=== PATIENT | female | born 1960 | race Caucasian/White ===

== ENCOUNTER 2018-10-07 19:58 | Observation (INO) ==
[2018-10-07] MEDS ORDERED: Isovue-370 500 ML BOTTLE IVP ONE (20:10)
--- NOTE | 2018-10-07 20:21 | Emergency Department Note ---
Disposition Clinical Impression: Hyponatremia, Tremor Acute pulmonary embolism Qualifiers: Pulmonary embolism type: other Acute cor pulmonale presence: without acute cor pulmonale Qualified Code(s): I26.99 - Other pulmonary embolism without acute cor pulmonale Disposition: Admitted As Inpatient Condition: Fair General Adult HPI - General Chief complaint: ED General Medical Stated complaint: cp/tremors Time Seen by Provider: 10/07/18 20:08 Source: patient, EMS Limitations: no limitations Nursing Notes Reviewed: Yes Vital Signs Reviewed: Yes - History of Present Illness HPI Narrative: 58-year-old female with history of COPD who presents the emergency department with complaints of tremors and chest pain. Apparently the patient has had chest pain, midsternally and radiating into her her right lateral ribs which she describes as pleuritic and sharp for the past 3 days. She feels increasingly more short of breath but did not take her inhalers today. She does have a history of pulmonary embolism and DVT but is not on anticoagulation at this time. Otherwise she has noted tremors of bilateral upper extremities for approximately 20 minutes prior to arrival. She also notes numbness in her right foot but does have diabetic neuropathy and she has a boot on the left foot due to a fracture approximately one week ago. She has never had anything like this before. She denies any fever, chills, nausea, vomiting, abdominal pain. She is on lacosamide for seizures and is no longer on anticoagulation from history of DVT. She has previously had similar tremor which has been evaluated by a neurologist in the past and was found to be benign. Pain Scale: 8 - Related Data Home Medications Medication Instructions Recorded Confirmed ALPRAZolam [Xanax 1 MG Tablet] 1 mg PO TID 10/08/18 10/08/18 Atorvastatin [Lipitor] 40 mg PO HS 10/08/18 10/08/18 Chlorzoxazone 500 mg PO TID PRN 10/08/18 10/08/18 Diclofenac Sodium 25 mg PO BID 10/08/18 10/08/18 Duloxetine HCl [Cymbalta] 60 mg PO DAILY 10/08/18 10/08/18 Folic Acid 1 mg PO TID 10/08/18 10/08/18 Gabapentin [Neurontin] 800 mg PO QID PRN 10/08/18 10/08/18 Lacosamide [Vimpat] 100 mg PO BID 10/08/18 10/08/18 Lisinopril [Zestril] 5 mg PO DAILY 10/08/18 10/08/18 Methotrexate [Otrexup] 17.5 mg PO SA 10/08/18 10/08/18 OxyCODONE/APAP 10/325 [Percocet 1 tab PO DAILY PRN 10/08/18 10/08/18 10/325 MG] Oxymorphone HCl [Oxymorphone HCl 10 mg PO Q12H 10/08/18 10/08/18 ER] Ranitidine HCl [Zantac] 150 mg PO BID 10/08/18 10/08/18 Spironolactone 25 mg PO DAILY 10/08/18 10/08/18 metFORMIN [Glucophage] 500 mg PO BID 10/08/18 10/08/18 predniSONE [PredniSONE] 5 mg PO DAILY 10/08/18 10/08/18 traZODone [TraZODone] 25 mg PO HS 10/08/18 10/08/18 Allergies Allergy/AdvReac Type Severity Reaction Status Date / Time Penicillins [PCN] Allergy Hives Verified 02/24/15 16:11 Review of Systems: ROS per history of present illness, all other systems reviewed and negative or normal. All systems ED: reviewed and negative except as stated. Review of Systems: As Per HPI Past Medical History - Past Medical History Medical history: Reports: arthritis, COPD, coronary artery disease, diabetes, fibromyalgia, hyperlipidemia, hypertension, pulmonary embolus, other Surgical history: Reports: appendectomy, hysterectomy, other Psychiatric history: Reports: anxiety, depression - Social History Smoking Status: Current every day smoker Smokeless Tobacco Status: No Alcohol use: Reports: rarely Drug use: Reports: none Physical Exam General: Conversant. No apparent distress. Follow commands. Appears stated age. Neck: No JVD. Trachea midline. Neck supple. Eyes: PERRL. No scleral icterus. HENT: Normocephalic and atraumatic. Moist mucus membranes. Cardiovascular: Regular rate and rhythm. Normal S1 and S2. No murmurs appreciated. Normal capillary refill. Extremities well perfused with 2+ distal pulses bilaterally. No edema. Pulmonary: Wheezing diffusely with coarse breath sounds. Not in respiratory distress. Abdomen: Soft, nondistended, and tontender. No bruits or masses. No guarding. Neuro: Alert and oriented x3. No slurred speech. No focal deficits noted. Intermittent tremor of bilateral upper extremities which ceases with intention. Strength 5 out of 5 in bilateral upper and lower extremities. EOMI. Skin: No rashes noted on visualized skin. Musculoskeletal: No bony abnormalities visualized. Moves all extremities. Psych: Normal mood. Pleasant. Makes appropriate eye contact. - General Limitations: no limitations General appearance: alert Course - Reevaluation(s) Reevaluation #1: Per radiologist, Patient has right segmental and subsegmental pulmonary emboli on the right. Time: 21:49 Vital Signs Temperature 97.6 F 10/07/18 19:59 Pulse Rate 114 10/07/18 19:59 Respiratory Rate 24 10/07/18 19:59 Blood Pressure 120/98 10/07/18 19:59 O2 Sat by Pulse Oximetry 97 10/07/18 19:59 Temperature 97.6 F 10/07/18 19:59 Pulse Rate 109 10/07/18 21:04 Respiratory Rate 18 10/07/18 22:57 Blood Pressure 119/81 10/07/18 22:57 O2 Sat by Pulse Oximetry 93 10/07/18 21:04 Oxygen Delivery Oxygen Delivery Room Air Medical Decision Making - MDM Narrative Medical decision making narrative: 58 old female who presents the emergency department with complains of pleuritic chest pain as well as tremors. Her chest pain has been present for approximately 3 days and her tremors proximally 20 minutes. She does admit to history of DVT and is not on anticoagulation at this point. She does have a history of tremors which were evaluated by a neurologist. Here in the emergency department initial concern for new intracranial pathology as well as pulmonary embolism. CT head shows no evidence of acute bleed. CBC shows no significant leukocytosis, anemia, BMP shows hyponatremia 130, no prior to determine chronicity of this. Otherwise TSH is normal, BNP 39, troponin undetectable 1. EKG shows right bundle branch block, no prior for comparison. Chest CTA does show right subsegmental and segmental pulmonary emboli. Indeterminate whether her left foot fracture and possible decreased ambulation precipitated this pulmonary embolism but she does have prior history of DVT as well. Intention tremor did resolve with one time dose of ativan and given her previous negative workup and negative neurologic deficits do believe this is likely stress induced. Given the patient's symptoms and need for anticoagulation will admit the patient. Placed the patient on heparin drip. Discussed case with on-call hospitalist Dr. Alegre who agrees with plan for admission and accepts the patient to the inpatient service. Patient agrees with and understands course of treatment plan including plan for admission. All questions answered. - Medical Records Medical records reviewed: Yes I reviewed the patient's medical records. - Lab Data Lab results reviewed: Yes I reviewed the patient's lab results. Result diagrams: 10/08/18 08:26 10/08/18 08:26 Lab Results 10/07/18 10/07/18 10/07/18 Range/Units 20:32 20:32 20:32 WBC 5.9 (4.3-11.1) K/mcL RBC 4.25 (3.82-4.97) M/mcL Hgb 13.4 (11.5-15.4) g/dL Hct 40.2 (35.3-44.9) % MCV 94.6 (83.0-100.0) fL MCH 31.5 (28.0-33.3) pg MCHC 33.3 (31.6-35.5) g/dL RDW 17.8 H (11.5-14.5) % Plt Count 176 (140-400) K/mcL MPV 9.5 (9.4-12.4) fL Immature Gran % 0.7 (0-4) % Seg Neutrophils % 64.4 % Lymphocytes % 28.3 % Monocytes % 4.1 % Eosinophils % 2.0 % Basophils % 0.5 % Neutrophils # 3.8 (1.6-8.9) K/mcL Lymphocytes # 1.7 (0.6-4.6) K/mcL Monocytes # 0.2 (0.0-1.3) K/mcL Eosinophils # 0.1 (0.0-0.6) K/mcL Basophils # 0.0 (0.0-0.2) K/mcL Nucleated RBCs/100 WBC 0.3 H (0) /100 WBC PT (9.4-12.1) Seconds INR APTT (26.0-36.0) Seconds Sodium 130 L (136-145) mEq/L Potassium 4.8 (3.5-5.1) mEq/L Chloride 96 L (98-107) mEq/L Carbon Dioxide 27 (23-29) mEq/L BUN 18 (6-20) mg/dL Creatinine 0.99 (0.60-1.20) mg/dL Est GFR ( Amer) > 60 (> 60) Est GFR (Non-Af Amer) 58 L (> 60) BUN/Creatinine Ratio 18 (6-26) Glucose 206 H (70-105) mg/dL Calculated Osmolality 278 L (280-300) Calcium 9.1 (8.6-10.3) mg/dL Magnesium 1.6 (1.6-2.6) mg/dL Troponin I < 0.03 (< 0.04) ng/mL B-Natriuretic Peptide (Less than 100) pg/mL TSH 3.274 (0.340-5.600) mcIU/mL 10/07/18 10/07/18 Range/Units 20:32 20:32 WBC (4.3-11.1) K/mcL RBC (3.82-4.97) M/mcL Hgb (11.5-15.4) g/dL Hct (35.3-44.9) % MCV (83.0-100.0) fL MCH (28.0-33.3) pg MCHC (31.6-35.5) g/dL RDW (11.5-14.5) % Plt Count (140-400) K/mcL MPV (9.4-12.4) fL Immature Gran % (0-4) % Seg Neutrophils % % Lymphocytes % % Monocytes % % Eosinophils % % Basophils % % Neutrophils # (1.6-8.9) K/mcL Lymphocytes # (0.6-4.6) K/mcL Monocytes # (0.0-1.3) K/mcL Eosinophils # (0.0-0.6) K/mcL Basophils # (0.0-0.2) K/mcL Nucleated RBCs/100 WBC (0) /100 WBC PT 9.8 (9.4-12.1) Seconds INR 0.9 APTT 27.3 (26.0-36.0) Seconds Sodium (136-145) mEq/L Potassium (3.5-5.1) mEq/L Chloride (98-107) mEq/L Carbon Dioxide (23-29) mEq/L BUN (6-20) mg/dL Creatinine (0.60-1.20) mg/dL Est GFR ( Amer) (> 60) Est GFR (Non-Af Amer) (> 60) BUN/Creatinine Ratio (6-26) Glucose (70-105) mg/dL Calculated Osmolality (280-300) Calcium (8.6-10.3) mg/dL Magnesium (1.6-2.6) mg/dL Troponin I (< 0.04) ng/mL B-Natriuretic Peptide 39 (Less than 100) pg/mL TSH (0.340-5.600) mcIU/mL - Radiology Data Radiology results reviewed: Yes I reviewed the patient's radiology results. - EKG Data EKG #1 EKG attestation: Yes I reviewed and interpreted this EKG. EKG results narrative: Sinus tachycardia rate of 110. Normal axis. There is evidence of right bundle branch block. No prior for comparison. Attestation Statement - Attestation Attestation: I examined this patient and my medical decision-making was reviewed with the Resident Physician. I agree with the documented findings, disposition and treatment plan as described except to the extent set forth below.
--- NOTE | 2018-10-07 20:28 | Emergency Department Note ---
Disposition Clinical Impression: Acute pulmonary embolism Disposition: Admitted As Inpatient Condition: Fair Forms: ED Satisfaction Letter, Work/School Release General Adult HPI - General Chief complaint: ED General Medical Stated complaint: cp/tremors Time Seen by Provider: 10/07/18 20:08 Source: patient, EMS Limitations: no limitations - History of Present Illness Pain Scale: 8 - Related Data Previous Rx's Medication Instructions Recorded Oxycodone HCl/Acetaminophen 1 each PO 1-2XD #7 tablet 02/24/15 [Percocet 7.5-325 mg Tablet] Allergies Allergy/AdvReac Type Severity Reaction Status Date / Time Penicillins [PCN] Allergy Hives Verified 02/24/15 16:11 Past Medical History - Past Medical History Medical history: Reports: arthritis, COPD, coronary artery disease, diabetes, fibromyalgia, hyperlipidemia, hypertension, pulmonary embolus, other Surgical history: Reports: appendectomy, hysterectomy, other Psychiatric history: Reports: anxiety, depression - Social History Smoking Status: Current every day smoker Smokeless Tobacco Status: No Alcohol use: Reports: rarely Drug use: Reports: none Physical Exam - General Limitations: no limitations General appearance: alert Course Vital Signs Temperature 97.6 F 10/07/18 19:59 Pulse Rate 114 10/07/18 19:59 Respiratory Rate 24 10/07/18 19:59 Blood Pressure 120/98 10/07/18 19:59 O2 Sat by Pulse Oximetry 97 10/07/18 19:59 Temperature 97.6 F 10/07/18 19:59 Pulse Rate 109 10/07/18 21:04 Respiratory Rate 16 10/07/18 21:04 Blood Pressure 99/82 10/07/18 21:04 O2 Sat by Pulse Oximetry 93 10/07/18 21:04 Oxygen Delivery Oxygen Delivery Room Air Medical Decision Making - Lab Data Result diagrams: 10/07/18 20:32 10/07/18 20:32 Lab Results 10/07/18 10/07/18 10/07/18 Range/Units 20:32 20:32 20:32 WBC 5.9 (4.3-11.1) K/mcL RBC 4.25 (3.82-4.97) M/mcL Hgb 13.4 (11.5-15.4) g/dL Hct 40.2 (35.3-44.9) % MCV 94.6 (83.0-100.0) fL MCH 31.5 (28.0-33.3) pg MCHC 33.3 (31.6-35.5) g/dL RDW 17.8 H (11.5-14.5) % Plt Count 176 (140-400) K/mcL MPV 9.5 (9.4-12.4) fL Immature Gran % 0.7 (0-4) % Seg Neutrophils % 64.4 % Lymphocytes % 28.3 % Monocytes % 4.1 % Eosinophils % 2.0 % Basophils % 0.5 % Neutrophils # 3.8 (1.6-8.9) K/mcL Lymphocytes # 1.7 (0.6-4.6) K/mcL Monocytes # 0.2 (0.0-1.3) K/mcL Eosinophils # 0.1 (0.0-0.6) K/mcL Basophils # 0.0 (0.0-0.2) K/mcL Nucleated RBCs/100 WBC 0.3 H (0) /100 WBC Sodium 130 L (136-145) mEq/L Potassium 4.8 (3.5-5.1) mEq/L Chloride 96 L (98-107) mEq/L Carbon Dioxide 27 (23-29) mEq/L BUN 18 (6-20) mg/dL Creatinine 0.99 (0.60-1.20) mg/dL Est GFR ( Amer) > 60 (> 60) Est GFR (Non-Af Amer) 58 L (> 60) BUN/Creatinine Ratio 18 (6-26) Glucose 206 H (70-105) mg/dL Calculated Osmolality 278 L (280-300) Calcium 9.1 (8.6-10.3) mg/dL Magnesium 1.6 (1.6-2.6) mg/dL Troponin I < 0.03 (< 0.04) ng/mL TSH 3.274 (0.340-5.600) mcIU/mL Attestation Statement - Attestation Attestation: Patient presented emergency department with several complaints, but her primary complaint is of chest pain and shortness of breath sharp stabbing chest pain on the right side of her chest going into her back. She has a history of pulmonary embolus and states that this is similar she also complains of increased significant right upper extremity tremor, she has a history of prior seizures but never has had tremors like this, this all started today. The family reports that the patient just started slapping herself repeatedly in the face, they brought her arm down, and she continued to have tremor intermittently in the right upper extremity since that time. She denies significant headache. She denies neck pain. She denies unilateral numbness or weakness of her states that her feet feel like they are asleep especially her right foot, she states that s he has a history of neuropathy but his symptoms may be worse. She denies fever she has had increased cough with sputum production today. She has a history of COPD. She states she did not use her inhaler. She denies abdominal pain nausea vomiting diarrhea. Upon presentation she is alert and oriented 3, nontoxic in appearance awake and talking, with no obvious focal neurologic findings, she does have intermittent right upper extremity tremor, which comes and goes on its own, also seems to go away with intention. Speech is clear cranial nerves are intact oropharynx is normal. Lungs diffuse coarse breath sounds, diffuse wheezing. Cardiovascular regular rhythm, tachycardic with a rate of 114, no obvious murmurs rubs or gallops, no JVD, no peripheral edema, no clinical evidence of DVT abdomen soft and nontender. EKG was a sinus tachycardia with a right bundle branch block pattern, no old EKG was available for comparison, there is no evidence to suggest true ST segment elevation a low borderline within leads 23 and aVF, but without any reciprocal abnormality. Basic laboratory studies and workup was initiated. She was given Ativan for tremor and for pain. EKG was a sinus tachycardia, no evidence of acute ischemia as above. Basic laboratory studies were within acceptable limits. Head CT is interpreted by radiology showed no acute findings. CT scan of the chest was positive for pulmonary embolism in the right segmental and subsegmental. She was treated with anticoagulation, and will be admitted to the hospital for further evaluation and management of acute pulmonary embolus, with chest pain shortness of breath and tachycardia, with a right bundle-branch block pattern on her EKG which could be suggestive of heart strain, but no old EKG is available for comparison.
[2018-10-07] MEDS ORDERED: Ipratropium/Albuterol Neb 3 ML IH ONE (20:42)
[2018-10-07] MEDS ORDERED: methylPREDNISolone 125 MG/2 ML VIAL IVP ONE (20:42)
[2018-10-07 20:48] LABS: Basophils % 0.5 %; Eosinophils # 0.1 K/mcL (0.0-0.6); Hematocrit 40.2 % (35.3-44.9); Hemoglobin 13.4 g/dL (11.5-15.4); Immature Granulocytes % 0.7 % (0-4); Lymphocytes # 1.7 K/mcL (0.6-4.6); Lymphocytes % 28.3 %; Mean Corpuscular HGB Conc 33.3 g/dL (31.6-35.5); Mean Corpuscular Hemoglobin 31.5 pg (28.0-33.3); Mean Corpuscular Volume 94.6 fL (83.0-100.0); Mean Platelet Volume 9.5 fL (9.4-12.4); Monocytes # 0.2 K/mcL (0.0-1.3); Monocytes % 4.1 %; Neutrophils # 3.8 K/mcL (1.6-8.9); Nucleated Red Blood Cells 0.3 /100 WBC (0); Platelet Count 176 K/mcL (140-400); Red Blood Count 4.25 M/mcL (3.82-4.97); Red Cell Distribution Width 17.8 % (11.5-14.5); Segmented Neutrophils % 64.4 %
[2018-10-07 21:01] LABS: BUN/Creatinine Ratio 18 (6-26); Blood Urea Nitrogen 18 mg/dL (6-20); Calcium 9.1 mg/dL (8.6-10.3); Carbon Dioxide 27 mEq/L (23-29); Chloride 96 mEq/L (98-107); Glucose 206 mg/dL (70-105); Osmolality,Calculated 278 (280-300); Potassium 4.8 mEq/L (3.5-5.1); Sodium 130 mEq/L (136-145); eGFR For Non-African Americans 58 (> 60)
[2018-10-07] MEDS: *HR* LORazepam 1 MG TABLET PO ONE ×2 (21:02→21:35)
[2018-10-07 21:03] LABS: Magnesium 1.6 mg/dL (1.6-2.6)
[2018-10-07 21:04] LABS: Troponin I < 0.03 ng/mL (< 0.04)
[2018-10-07] MEDS ORDERED: *HR* LORazepam 1 MG TABLET ONE (21:08)
[2018-10-07 21:18] LABS: Thyroid Stimulating Hormone 3.274 mcIU/mL (0.340-5.600)
[2018-10-07] MEDS ORDERED: 0.9 % Sodium Chloride 1,000 ML IVC STA (21:19)
[2018-10-07] MEDS ORDERED: *HR* Enoxaparin 80 MG/0.8 ML SYRINGE SQ STA (21:57)
[2018-10-07] MEDS ORDERED: *HR* Heparin 5,000 UNIT/ML VIAL IVP ONE (22:06)
[2018-10-07] MEDS ORDERED: Naloxone 0.4 MG/ML INJ IVP PRN (22:08)
[2018-10-07] MEDS ORDERED: Dextrose Gel 15 GM/37.5 ML TUBE PO PRN ×2 (22:11)
[2018-10-07] MEDS ORDERED: *HR* Dextrose 50 % in Water (Syg) 50 ML SYRINGE IVP PRN (22:11)
[2018-10-07] MEDS ORDERED: D5% in Water 1,000 ML IVC PRN (22:11)
[2018-10-07 22:12] LABS: INR 0.9; Prothrombin Time 9.8 Seconds (9.4-12.1)
[2018-10-07 22:15] LABS: Activated Partial Thrombo Time 27.3 Seconds (26.0-36.0)
[2018-10-08] MEDS: Nicotine 14 MG PATCH.TD24 TD SCH ×2 (00:11→19:24)
[2018-10-08] MEDS: Acetaminophen 325 MG TABLET PO PRN (00:11)
[2018-10-08] MEDS: Insulin LISPRO 300 UNITS/3 ML VIAL SQ SCH ×4 (00:35→16:52)
[2018-10-08] MEDS ORDERED: traMADol 50 MG TABLET PO PRN (00:43)
[2018-10-08] MEDS ORDERED: Naloxone 0.4 MG/ML INJ IVP PRN (00:43)
[2018-10-08] MEDS ORDERED: *HR* OxyCODONE/APAP 7.5/325 TABLET PO PRN (00:44)
[2018-10-08] MEDS ORDERED: Gabapentin 400 MG CAPSULE PO PRN (00:44)
--- NOTE | 2018-10-08 00:48 | Internal Med History&Physical ---
Date of Encounter: 10/08/18 Time of Encounter: 00:45 Internal Medicine - H&P: HPI Chief complaint: Chest Pain/ Tremors History of present illness: Ms. Alcocer is a 58 year old female past medical history of COPD, CAD, diabetes, anxiety, seizures and previous history of DVT/PE who presented to the ED with a chief complaint of tremors and chest pain. Patient has noted right upper chest pain for the past 3 days that is gotten progressively worse. Pain is described as sharp and stabbing radiating to her back; aggravated with deep inspiration. Earlier this evening patient was having something to eat when she began having tremors in both her upper and lower extremities. She states that tremors were so severe that she could not control her arms and nearly hit herself in the face. Patient does have a history of anxiety and seizures and has had tremors before but not this severe. She is currently takes Xanax as well as Percocet and oxymorphone. Denies any recent changes to her medications. She further adds that this is not like her seizures in that her seizures are typically tonic-clonic with loss of consciousness. She denies any loss of consciousness during this episode. She reports no fever, chills, recent illness, nausea, vomiting, abdominal pain or diarrhea. No no reports of focal neurological changes. Patient currently follows with a neurologist for her seizures. Patient reports she had a previous PE/DVT around 2011 occurring after a fall and trauma to her right lower extremity. Patient was on Coumadin for a brief time. She reports a recent fracture of her left foot approximately 3 weeks ago. No surgeries performed but she states that she has been more sedentary than usual. Otherwise no recent travel, no use of OCPs. Tremors subsided shortly after receiving 2 mg of oral Ativan in the ED. On arrival patient was afebrile, hemodynamically stable saturating in the low 90s on room air. Laboratory workup aside from mild hyponatremia of [address] scan A of the chest showed pulmonary emboli involving a segmental and subsegmental branches supplying the right lower lobe. Patient was given therapeutic dose of Lovenox and admitted for further evaluation. Past Med Surg Social Fam HX - Past Medical History Medical history: arthritis, COPD, coronary artery disease, diabetes, fibromyalgia, hyperlipidemia, hypertension, pulmonary embolus, other Additional medical history: Neuropathy Psychiatric history: anxiety, depression - Past Surgical History Surgical History: appendectomy, hysterectomy, other Additional surgical history: back - Social History Smoking Status: Current every day smoker Packs per day: 1 Smokeless Tobacco Status: No Alcohol use: rarely Drug use: none - Family History Father Hx Family Cardiac Disorders: Yes Mother Hx Family Cardiac Disorders: Yes Internal Medicine - H&P: Meds ALPRAZolam [Xanax 1 MG Tablet] 1 mg PO TID 10/08/18 [History] Atorvastatin [Lipitor] 40 mg PO HS 10/08/18 [History] Chlorzoxazone 500 mg PO TID PRN 10/08/18 [History] Diclofenac Sodium 25 mg PO BID 10/08/18 [History] Duloxetine HCl [Cymbalta] 60 mg PO DAILY 10/08/18 [History] Folic Acid 1 mg PO TID 10/08/18 [History] Gabapentin [Neurontin] 800 mg PO QID PRN 10/08/18 [History] Lacosamide [Vimpat] 100 mg PO BID 10/08/18 [History] Lisinopril [Zestril] 5 mg PO DAILY 10/08/18 [History] Methotrexate [Otrexup] 17.5 mg PO SA 10/08/18 [History] OxyCODONE/APAP 10/325 [Percocet 10/325 MG] 1 tab PO DAILY PRN 10/08/18 [History] Oxymorphone HCl [Oxymorphone HCl ER] 10 mg PO Q12H 10/08/18 [History] Ranitidine HCl [Zantac] 150 mg PO BID 10/08/18 [History] Spironolactone 25 mg PO DAILY 10/08/18 [History] metFORMIN [Glucophage] 500 mg PO BID 10/08/18 [History] predniSONE [PredniSONE] 5 mg PO DAILY 10/08/18 [History] traZODone [TraZODone] 25 mg PO HS 10/08/18 [History] Allergy/AdvReac Type Severity Reaction Status Date / Time Penicillins [PCN] Allergy Hives Verified 02/24/15 16:11 All Systems PM: A 10-system review of systems was performed and is negative for pertinent findings except as documented above in the HPI. - Constitutional Constitutional: no chills, no fever(s), no night sweats - EENT Eyes: no change in vision, no discharge, no pain, no photophobia Ears: no ear discharge, no ear pain, no tinnitus Nose, mouth and throat: no dysphagia, no nasal discharge, no neck pain, no sore throat - Cardiovascular Cardiovascular ROS IM: no chest pain, no diaphoresis, no dyspnea, no lightheadedness, no palpitations, no syncope - Respiratory Respiratory: no cough, no dyspnea, no wheezing, no excessive phlegm production - Gastrointestinal Gastrointestinal: no abdominal pain, no diarrhea, no hematemesis, no hematochezia, no melena, no nausea, no vomiting - Genitourinary Genitourinary: no change in urinary stream, no dysuria, no flank pain, no hematuria - Musculoskeletal Musculoskeletal ROS IM: no numbness, no tingling - Integumentary Integumentary IM: no rash, no unusual bruising - Neurological Neurological ROS: no confusion, no convulsions, no focal weakness, no numbness, no tingling, no tremor(s) - Hematologic/Lymphatic Hematologic/Lymphatic: no easy bruising - Constitutional Vitals: Temp Pulse Resp BP Pulse Ox 98.6 F 88 18 106/71 90 10/07/18 23:33 10/07/18 23:33 10/07/18 23:33 10/07/18 23:33 10/07/18 23:33 Exam: General: Alert and oriented 3 lying in bed in no acute distress Skin:Normal color, no rash, no lesions. HEENT:EOM, pupils equal, round and reactive. Cardiovascular:Normal S1 & S2, no rubs, murmurs or gallops. No JVD. Pulse regu lar. Lungs:Normal breath sounds, no wheezes or crackles. Abdomen:Soft, non-tender, no rigidity. Extremities:No deformity, no edema or tenderness, no joint swelling or clubbing. Neurological:Normal cognition and motor skills. Pulses:Carotid and radial pulses normal +2. Rest of the physical exam is non contributory Internal Med - H&P Results - Labs CBC & Chem 7: 10/08/18 08:26 10/08/18 08:26 Labs: Short CBC 10/07/18 Range/Units 20:32 WBC 5.9 (4.3-11.1) K/mcL Hgb 13.4 (11.5-15.4) g/dL Hct 40.2 (35.3-44.9) % Plt Count 176 (140-400) K/mcL Neutrophils # 3.8 (1.6-8.9) K/mcL BMP 10/07/18 20:32 Sodium 130 L Potassium 4.8 Chloride 96 L Carbon Dioxide 27 BUN 18 Creatinine 0.99 Glucose 206 H Calcium 9.1 Cardiac Enzymes 10/07/18 Range/Units 20:32 Troponin I < 0.03 (< 0.04) ng/mL - Impressions ITS Impressions Chest X-Ray 10/07/18 20:09 IMPRESSION: No acute abnormality detected. D/ / Manuel Ferris MD / Manuel Ferris MD Interpreting Provider: Manuel Ferris MD Chest CTA 10/07/18 20:10 IMPRESSION: Pulmonary emboli involving a segmental and subsequent subsegmental branches supplying the right lower lobe. Age-indeterminate compression deformity involving the T2 level. Remote manubrial fracture and multiple remote rib fractures. Critical results were called by Dr. Julian He to Kelley Burch on 10/07/2018 at 21:38. D/ / Julian He / Julian He Interpreting Provider: Julian He Head CT 10/07/18 20:21 IMPRESSION: No acute intracranial abnormality. D/ / Rubens Nava MD / Rubens Nava MD Interpreting Provider: Rubens Nava MD - Assessment and Plan (1) Acute pulmonary embolism Current Visit: Yes Status: Acute Assessment and plan: 58-year-old female with a previous history of PE/DVT presents with 3 day history of pleuritic chest pain. CT scan shows pulmonary emboli involving the segmental and subsegmental arteries. EKG shows right bundle branch block. No previous EKGs to compare to. Clear this is new. Patient had recent fracture of her left foot which is being managed nonsurgically at this time, but she does feel that she has been more sedentary since. Reports previous DVT/PE in 2012 after trauma to her lower extremity following a fall. No family history of blood clots disorder. Suspect provoked in the setting of recent fracture. -Telemetry -Continue Lovenox q12 -Echocardiogram to evaluate for any evidence of right heart strain. -Consider pulmonary consult based on results of echo. Qualifiers: Pulmonary embolism type: other Acute cor pulmonale presence: without acute cor pulmonale Qualified Code(s): I26.99 - Other pulmonary embolism without acute cor pulmonale (2) Tremor Current Visit: Yes Status: Acute Assessment and plan: Patient presents with reports of significant tremors involving the upper and lower extremity simultaneously. Patient reports that she has had tremors before but not to this severity. Patient has a history of anxiety and seizures. This would be a atypical presentation of her seizures as they are typically tonic- clonic with loss of consciousness. Patient denies any loss of consciousness. Denies any focal deficits. No focal deficits were appreciated on my examination. Head CT was normal. No clear etiology at this time. Suspect exac erbation of her anxiety in the setting of her pleuritic chest pain and shortness of breath. Patient did seem to focus on her pain and her pain regimen during the history though denies any recent changes in medication to suspect withdrawal. No reports of significant alcohol use. -We will monitor for now for any signs of withdrawal or neurological changes. She does have a neurologist whom she sees as outpatient. (3) COPD (chronic obstructive pulmonary disease) Current Visit: Yes Status: Acute Assessment and plan: No evidence of acute exacerbation. She not currently on any inhalers at home. We will continue to monitor for now. Qualifiers: Emphysema type: unspecified Qualified Code(s): J43.9 - Emphysema, unspecified (4) Type 2 diabetes mellitus Current Visit: Yes Status: Acute Assessment and plan: Accu-Cheks. Sliding scale insulin. Qualifiers: Chronic kidney disease stage: unspecified stage Qualified Code(s): E11.22 - Type 2 diabetes mellitus with diabetic chronic kidney disease; Z79.4 - penitentiary (current) use of insulin (5) Hyponatremia Current Visit: Yes Status: Acute Assessment and plan: Mild hyponatremia of 1:30. Patient received fluid bolus in the ED. Patient appears to be euvolemic at this time. We will reassess sodium in the morning. - Time Spent With Patient Total time spent is greater than 50% in coordination of care (as documented) at patient's floor/unit and/or counseling patient:
[2018-10-08] MEDS ORDERED: traZODone 50 MG TABLET PO PRN (01:35)
[2018-10-08 08:42] LABS: Hematocrit 36.3 % (35.3-44.9); Hemoglobin 12.1 g/dL (11.5-15.4); Mean Corpuscular HGB Conc 33.3 g/dL (31.6-35.5); Mean Corpuscular Hemoglobin 31.6 pg (28.0-33.3); Mean Corpuscular Volume 94.8 fL (83.0-100.0); Mean Platelet Volume 9.7 fL (9.4-12.4); Platelet Count 155 K/mcL (140-400); Red Blood Count 3.83 M/mcL (3.82-4.97)
[2018-10-08 08:48] LABS: INR 0.9; Prothrombin Time 10.5 Seconds (9.4-12.1)
[2018-10-08 08:51] LABS: Activated Partial Thrombo Time 30.7 Seconds (26.0-36.0)
[2018-10-08 09:03] LABS: BUN/Creatinine Ratio 21 (6-26); Blood Urea Nitrogen 21 mg/dL (6-20); Calcium 8.8 mg/dL (8.6-10.3); Carbon Dioxide 26 mEq/L (23-29); Chloride 99 mEq/L (98-107); Glucose 323 mg/dL (70-105); Osmolality,Calculated 295 (280-300); Potassium 4.7 mEq/L (3.5-5.1); Sodium 135 mEq/L (136-145); Troponin I < 0.03 ng/mL (< 0.04); eGFR For Non-African Americans 58 (> 60)
[2018-10-08] MEDS: OXYMORPHONE HCL 10 MG PO SCH ×2 (09:25→21:04)
[2018-10-08] MEDS: DICLOFENAC SODIUM 25 MG PO SCH ×2 (09:25→21:04)
[2018-10-08] MEDS: ALPRAZolam 1 MG TABLET PO SCH ×3 (09:58→21:03)
[2018-10-08] MEDS ORDERED: *HR* Enoxaparin 60 MG/0.6 ML SYRINGE SQ SCH (10:00)
[2018-10-08] MEDS: *HR* OxyCODONE/APAP 7.5/325 TABLET PO PRN ×2 (11:09→19:23)
[2018-10-08] MEDS: Gabapentin 300 MG CAPSULE PO SCH ×2 (15:01→21:03)
--- NOTE | 2018-10-08 16:25 | Internal Med Progress Note ---
Hospitalist Progress Note - Encounter Date of Encounter: 10/08/18 Time of Encounter: 16:28 - Subjective Interval History: SUBJECTIVE: The patient feels better. The tremor in her upper extremities subsided; started yesterday early evening and finished today morning. She continues to have constant pain in the upper portion of her sternal area. She continues to have lower back pain. She has had long-standing history of rheumatoid arthritis and fibromyalgia; had low back surgery with insertion of hardware in the past. She had clots in her leg several years ago. We found her to have pulmonary emboli, when evaluating her in the emergency department. OBJECTIVE: Skin: Free of rash and discoloration. ENMT: Oral/pharyngeal mucosa is normal in appearance. Eyes: Sclera is white. There is no discharge from eyes. Respiratory: Normal breath sounds. I cannot hear any rhonchi or wheezes. CV: Heart is regular, with no gallop or murmur. GI: Abdomen is soft and not tender. There is no palpable mass or visceromegaly. Neuro: There is no focal deficits. ADDITIONAL DATA: CT angiogram of chest reveals pulmonary emboli involving segmental and subsequen t subsegmental branches supplying the right lower lobe. CBC is normal. Pro time INR is 0.9. BMP shows sodium of 130 with a glucose of 206. The rest of it is normal. ASSESSMENT AND PLAN: Pulmonary emboli. I wanted her to be on Lovenox. I had to change it to IV heparin drip, as she had short lasting epistaxis. I am ordering a venous duplex of lower extremities. Chest pain/coronary artery disease. There is definitely tenderness with palpation of upper sternum. Her troponin is normal. Tremors. Etiology unclear. Subsided. Type 2 diabetes mellitus. She was on metformin at home. Currently she gets when necessary Humalog. Hypertension. Under control. To continue lisinopril. She has a few other problems they seem to be of less importance at this time. - Exam Vitals: Temp Pulse Resp BP Pulse Ox 98.5 F 84 18 160/103 98 10/08/18 15:32 10/08/18 15:32 10/08/18 15:32 10/08/18 15:32 10/08/18 15:32 Exam: xx - Assessment and Plan (1) Acute pulmonary embolism Current Visit: Yes Status: Acute (2) Tremor Current Visit: Yes Status: Acute (3) COPD (chronic obstructive pulmonary disease) Current Visit: Yes Status: Acute (4) Type 2 diabetes mellitus Current Visit: Yes Status: Acute - Time Spent with Patient Total time spent is greater than 50% in coordination of care (as documented) at patient's floor/unit and/or counseling patient: 25 - 35 minutes Plan of Care Discussed with: patient Internal Medicine: Result - Labs CBC & Chem 7: 10/08/18 08:26 10/08/18 08:26 Labs: Short CBC 10/07/18 10/08/18 Range/Units 20:32 08:26 WBC 5.9 5.4 (4.3-11.1) K/mcL Hgb 13.4 12.1 (11.5-15.4) g/dL Hct 40.2 36.3 (35.3-44.9) % Plt Count 176 155 (140-400) K/mcL Neutrophils # 3.8 (1.6-8.9) K/mcL BMP 10/07/18 10/08/18 20:32 08:26 Sodium 130 L 135 L Potassium 4.8 4.7 Chloride 96 L 99 Carbon Dioxide 27 26 BUN 18 21 H Creatinine 0.99 0.99 Glucose 206 H 323 H Calcium 9.1 8.8 Cardiac Enzymes 10/07/18 10/08/18 Range/Units 20:32 08:26 Troponin I < 0.03 < 0.03 (< 0.04) ng/mL - ABG Interpretation ABG results: PT/INR, D-dimer PT 10.5 Seconds (9.4-12.1) 10/08/18 08:26 - Impressions Impressions Chest X-Ray 10/07/18 20:09 IMPRESSION: No acute abnormality detected. D/ / Manuel Ferris MD / Manuel Ferris MD Interpreting Provider: Manuel Ferris MD Chest CTA 10/07/18 20:10 IMPRESSION: Pulmonary emboli involving a segmental and subsequent subsegmental branches supplying the right lower lobe. Age-indeterminate compression deformity involving the T2 level. Remote manubrial fracture and multiple remote rib fractures. Critical results were called by Dr. Julian He to Kelley Burch on 10/07/2018 at 21:38. D/ / Julian He / Julian He Interpreting Provider: Julian He Head CT 10/07/18 20:21 IMPRESSION: No acute intracranial abnormality. D/ / Rubens Nava MD / Rubens Nava MD Interpreting Provider: Rubens Nava MD Consult Discharge Plan - Plan Referrals: NONE,PCP [Primary Care Provider] - (1) Acute pulmonary embolism Qualifiers: Pulmonary embolism type: other Acute cor pulmonale presence: without acute cor pulmonale Qualified Code(s): I26.99 - Other pulmonary embolism without acute cor pulmonale (3) COPD (chronic obstructive pulmonary disease) Qualifiers: Emphysema type: unspecified Qualified Code(s): J43.9 - Emphysema, unspecified (4) Type 2 diabetes mellitus Qualifiers: Chronic kidney disease stage: unspecified stage Qualified Code(s): E11.22 - Type 2 diabetes mellitus with diabetic chronic kidney disease; Z79.4 - alf (current) use of insulin
[2018-10-08] MEDS ORDERED: *HR* OxyCODONE/APAP 10/325 TABLET PO PRN ×2 (19:40→19:48)
[2018-10-08] MEDS ORDERED: (Chlorzoxazone 500 MG) PO PRN (19:40)
[2018-10-08] MEDS ORDERED: OXYMORPHONE HCL 10 MG PO SCH (19:45)
[2018-10-08] MEDS ORDERED: traZODone 50 MG TABLET PO SCH (21:00)
[2018-10-08] MEDS: Famotidine 20 MG TABLET PO SCH (21:03)
[2018-10-08] MEDS: Folic Acid 1 MG TABLET PO SCH (21:03)
[2018-10-08] MEDS ORDERED: Heparin 25,000 UNIT/250 ML D5W 25,000 UNIT/250 ML IV.SOLN IVC SCH (22:00)
[2018-10-08] MEDS ORDERED: *HR* Heparin 5,000 UNIT/ML VIAL IVP PRN ×2 (22:00)
[2018-10-09] MEDS ORDERED: Ipratropium/Albuterol Neb 3 ML IH ONE (04:18)
[2018-10-09] MEDS: Acetaminophen 325 MG TABLET PO PRN (04:38)
[2018-10-09] MEDS ORDERED: Ketorolac 15 MG/ML VIAL IVP ONE (06:40)
[2018-10-09] MEDS ORDERED: Spironolactone 25 MG TABLET PO SCH (09:00)
[2018-10-09] MEDS ORDERED: predniSONE 5 MG TABLET PO SCH (09:00)
[2018-10-09] MEDS: Insulin LISPRO 300 UNITS/3 ML VIAL SQ SCH ×2 (10:24→13:56)
[2018-10-09] MEDS: Nicotine 14 MG PATCH.TD24 TD SCH (10:24)
[2018-10-09] MEDS: Gabapentin 300 MG CAPSULE PO SCH (10:25)
[2018-10-09] MEDS: ALPRAZolam 1 MG TABLET PO SCH (10:25)
[2018-10-09] MEDS: Folic Acid 1 MG TABLET PO SCH (10:25)
[2018-10-09] MEDS: Famotidine 20 MG TABLET PO SCH (10:25)
[2018-10-09] MEDS: OXYMORPHONE HCL 10 MG PO SCH (10:36)
[2018-10-09] MEDS: DICLOFENAC SODIUM 25 MG PO SCH (10:36)
--- NOTE | 2018-10-09 13:12 | Electrocardiograph Report ---
[address] [place], [place] [address] Test Date: 2018-10-07 Pat Name: Marie Alcocer Department: EXAM21 Room: 2NE27 Gender: F Site Operations Manager: : 1960 Requested By: Kelley Burch Order Number: [id number] Reading MD: Joseph Looney Measurements Intervals [place] Rate: 110 P: 80 [place]: 168 QRS: 77 QRSD: 126 T: 61 QT: 314 QTc: 425 Interpretive Statements Sinus tachycardia Right atrial enlargement Right bundle branch block Inferior and Lateral st elevation - possible acute injury Electronically Signed On 10-09-2018 13:10:29 EDT by Joseph Looney
--- NOTE | 2018-10-09 14:54 | Discharge Summary ---
Date of Encounter: 10/09/18 Time of Encounter: 14:49 - Discharge Diagnosis (1) Acute pulmonary embolism Priority: Primary Status: Acute Qualifiers: Pulmonary embolism type: other Acute cor pulmonale presence: without acute cor pulmonale Qualified Code(s): I26.99 - Other pulmonary embolism without acute cor pulmonale (2) COPD (chronic obstructive pulmonary disease) Priority: Secondary Status: Chronic Qualifiers: Emphysema type: unspecified Qualified Code(s): J43.9 - Emphysema, unspecified (3) T2DM (type 2 diabetes mellitus) Priority: Secondary Status: Chronic Qualifiers: Diabetes mellitus exterminator helper insulin use: without fdc use Diabetes mellitus complication status: without complication Qualified Code(s): E11.9 - Type 2 diabetes mellitus without complications (4) Tremor Priority: Secondary Status: Resolved Hospital course: Ms. Alcocer is a 58 year old female Discharge discussed with: patient, nurse, case management - Time Spent with Patient Total time spent providing and/or coordinating discharge services: - Discharge Medications Prescriptions: New Apixaban [Eliquis] 5 mg PO BID #60 tablet Continued ALPRAZolam [Xanax 1 MG Tablet] 1 mg PO TID Lisinopril [Zestril] 5 mg PO DAILY metFORMIN [Glucophage] 500 mg PO BID Gabapentin [Neurontin] 800 mg PO QID PRN PRN Reason: Pain Diclofenac Sodium 25 mg PO BID Lacosamide [Vimpat] 100 mg PO BID traZODone [TraZODone] 25 mg PO HS Methotrexate [Otrexup] 17.5 mg PO SA Folic Acid 1 mg PO TID Ranitidine HCl [Zantac] 150 mg PO BID Duloxetine HCl [Cymbalta] 60 mg PO DAILY Chlorzoxazone 500 mg PO TID PRN PRN Reason: muscle spasm Atorvastatin [Lipitor] 40 mg PO HS predniSONE [PredniSONE] 5 mg PO DAILY Oxymorphone HCl [Oxymorphone HCl ER] 10 mg PO Q12H OxyCODONE/APAP 10/325 [Percocet 10/325 MG] 1 tab PO DAILY PRN PRN Reason: Pain Spironolactone 25 mg PO DAILY Home Medications: ALPRAZolam [Xanax 1 MG Tablet] 1 mg PO TID 10/08/18 [History] Atorvastatin [Lipitor] 40 mg PO HS 10/08/18 [History] Chlorzoxazone 500 mg PO TID PRN 10/08/18 [History] Diclofenac Sodium 25 mg PO BID 10/08/18 [History] Duloxetine HCl [Cymbalta] 60 mg PO DAILY 10/08/18 [History] Folic Acid 1 mg PO TID 10/08/18 [History] Gabapentin [Neurontin] 800 mg PO QID PRN 10/08/18 [History] Lacosamide [Vimpat] 100 mg PO BID 10/08/18 [History] Lisinopril [Zestril] 5 mg PO DAILY 10/08/18 [History] Methotrexate [Otrexup] 17.5 mg PO SA 10/08/18 [History] OxyCODONE/APAP 10/325 [Percocet 10/325 MG] 1 tab PO DAILY PRN 10/08/18 [History] Oxymorphone HCl [Oxymorphone HCl ER] 10 mg PO Q12H 10/08/18 [History] Ranitidine HCl [Zantac] 150 mg PO BID 10/08/18 [History] Spironolactone 25 mg PO DAILY 10/08/18 [History] metFORMIN [Glucophage] 500 mg PO BID 10/08/18 [History] predniSONE [PredniSONE] 5 mg PO DAILY 10/08/18 [History] traZODone [TraZODone] 25 mg PO HS 10/08/18 [History] Apixaban [Eliquis] 5 mg PO BID #60 tablet 10/09/18 [Rx] Allergies/Adverse Reactions: Allergy/AdvReac Type Severity Reaction Status Date / Time Penicillins [PCN] Allergy Hives Verified 02/24/15 16:11 Date of admission: 10/07/18 22:24 Primary care physician: PCP NONE Discharging clinician: Rhett Guevara Anticipated date of discharge: 10/09/18 - Constitutional Vitals: Temp Pulse Resp BP Pulse Ox 98.0 F 84 14 170/99 97 10/09/18 11:00 10/09/18 11:00 10/09/18 11:00 10/09/18 11:00 10/09/18 11:00 General appearance: Present: A&O X 3, no acute distress, answers questions appropriately Exam: xx - Patient Status Disposition: Home, Self-Care Condition: Fair Overall status at discharge: patient is progressing back to baseline - Discharge Instructions Instructions: Apixaban (By mouth), Pulmonary Embolism (DC), Diabetes Mellitus Type 2 in Adults (DC), Chronic Obstructive Pulmonary Disease (DC) Follow Up With: Maynor Barcenas [Partnered Physician] - 11/03/18 2:30 pm (This is the soonest appointment that they could get her in for a hospital follow up) Additional Instructions: FOLLOW-UP WITH PCP -- IN 1-2 WEEKS... ELIQUIS -- FOR MINIMUM 3-6 MONTHS... - Diet and Activity Activity: increase activity as tolerated Diet: diabetic diet
[2018-10-09 15:00] VITALS: BP 147/98
[2018-10-14] MEDS ORDERED: *HR* Methotrexate 2.5 MG TABLET PO SCH (18:00)
== END 2018-10-09 16:30 | disposition home or self-care (01) ==
LOC: EMEROOARM 19:58 → 2NENU 19:58 → SUATTDRO 22:24 → 2NENU 23:11
PROVIDERS: ADMIT Internal Medicine; ATTEND Internal Medicine